=== PATIENT | male | born 1975 | race Caucasian/White ===

== ENCOUNTER 2016-09-02 18:55 | Emergency (ER) | payer BC, OTHER ==
[~2016-09-02] VITALS: Ht 182.9 cm; Wt 104.3 kg
--- NOTE | 2016-09-02 19:03 | NUR ---
Pt ambulated to room with steady gait. Pt c/o L. arm pain, denies traum. Noted localized swelling. Pos CMS. Pt seen by , awaiting further orders.
--- NOTE | 2016-09-02 20:44 | NUR ---
Velcro thumb spica splint applied to L. arm. Pos CMS s/p application. Pt stable for discharge per MD. Pt given ACI. Pt verbalized understanding of dc instructions. Pt ambulated out of er with steady gait.
[2016-09-02 20:45] VITALS: BP 151/92
== END 2016-09-02 20:45 | disposition home or self-care (01) ==
LOC: ER 18:55
DX: M65.4 Radial styloid tenosynovitis [de Quervain] (principal)
CPT/HCPCS: 73100; A4663